=== PATIENT | female | born 1980 | race Caucasian/White ===

== ENCOUNTER 2022-05-18 23:45 | Emergency (ER) | payer MEDICAID, OTHER ==
[~2022-05-18] VITALS: Ht 172 cm; Wt 81.6 kg
[2022-05-19] MEDS ORDERED: TETANUS,DIPTH,PERTUSS P/F (BOOSTRIX) 0.5 ML VIAL IM ONE (00:15)
[2022-05-19] MEDS ORDERED: HYDROcodone/APAP 5 MG/325 MG (LORTAB) TAB PO ONE (00:15)
--- NOTE | 2022-05-19 00:18 | ED Upper Extremity ---
General Chief Complaint: Laceration Stated Complaint: LEFT HAND LAC Nursing Triage Note: patient states using a boxer operator, cutting towards herself. patient states cut her left hand. Source: patient Exam Limitations: no limitations History of Present Illness Date Seen by Provider: May 19, 2022 Time Seen by Provider: 00:00 Initial Comments Patient is a 41-year-old right-handed female presents with laceration to her left thumb base. Patient was using a boxer operator at the time she cut herself 1 hour prior to ED arrival. Patient has a 1 and half centimeter full-thickness laceration over the radial aspect of her left thumb pad. Bleeding is controlled. Patient has no motor deficit or loss of function. The joint is not involved. Last known tetanus is greater than 10 years. Onset: just prior to arrival Severity: mild Pain/Injury Location: left thumb Method of Injury: incised Modifying Factors: Improves With Other Allergies and Home Medications Allergies Coded Allergies: clindamycin (Unverified Allergy, Mild, 05/19/22) Patient Home Medication List Home Medication List Reviewed: Yes Review of Systems Constitutional: see HPI Musculoskeletal: see HPI Past [id number]-[id number] Hx Immunizations Up To Date Influenza Vaccine Up-to-Date: No; Not Current Physical Exam Vital Signs Vital Signs - First Documented 05/18/22 23:54 Temp 36.9 Pulse 108 Resp 20 B/P (MAP) 135/98 (110) Pulse Ox 99 O2 Delivery Room Air Capillary Refill : Less Than 3 Seconds Height, Weight, BMI Height: '" Weight: lbs. oz. kg; 27.00 BMI Method: General Appearance: WD/WN, no apparent distress Hand: Left, laceration (Left thumb laceration, ) Procedures/Interventions Wound Location: Upper Extremities (1.5 cm full-thickness laceration to the radial aspect of left thumb pad) Wound's Depth, Shape: linear Wound Explored: clean Betadine Prep?: No Other Closure Supply: Wound Adhesive Layer Closure?: 1 Progress Wound cleaned and closed with wound adhesive. Tetanus updated. Pain addressed. Typical wound care instructions provided Progress/Results/Core Measures Results/Orders My Orders Orders - ERNESTINA HODGE DO Dipht,Pertuss(Acell),Tet Adult (Boostrix (05/19/22 00:15) Hydrocodone/Apap 5/325 Tablet (Lortab 5 (05/19/22 00:15) Vital Signs/I&O 05/18/22 23:54 Temp 36.9 Pulse 108 Resp 20 B/P (MAP) 135/98 (110) Pulse Ox 99 O2 Delivery Room Air Blood Pressure Mean: 110 Departure Communication (Admissions) Wound cleansed and closed. Typical wound care instructions provided Impression Primary Impression: Laceration of left thumb Disposition: HOME, SELF-CARE Condition: Stable Departure-Patient Inst. Decision time for Depature: 00:19 Referrals: NO,LOCAL PHYSICIAN (PCP/Family) Primary Care Physician Patient Instructions: Laceration Repair With Glue ED Add. Discharge Instructions: Please keep wound clean and dry. Take ibuprofen as needed for pain. Return to the ED if signs of infection. All discharge instructions reviewed with patient and/or family. Voiced understanding. ERNESTINA HODGE DO May 19, 2022 00:18
[2022-05-19 00:24] VITALS: BP 135/98
== END 2022-05-19 00:24 | disposition home or self-care (01) ==
LOC: ER 23:51
DX: S61.012A Laceration without foreign body of left thumb without damage to nail, initial encounter (principal); Z23 Encounter for immunization; Z28.310 Unvaccinated for COVID-19; W26.8XXA Contact with other sharp object(s), not elsewhere classified, initial encounter
CPT/HCPCS: 12001; 90715